=== PATIENT | male | born 1945 | race Caucasian/White ===

== ENCOUNTER 2016-04-09 10:43 | Inpatient (IN) | payer OTHER ==
[2016-03-23 13:44] VITALS: BMI 45.0
--- NOTE | 2016-03-23 14:29 | PAT Medication Instructions ---
Service Date Mar 23, 2016. Current Home Medication List Amlodipine (Norvasc), 10 MG PO QAM Aspirin (Aspirin Ec), 81 MG PO QAM Lisinopril (Prinivil), 20 MG PO BID Misc Natural Products (Prostate Support), 1 TAB PO BID Misc Natural Products (Dandelion Root), 1 TAB PO QAM Multivitamin (Multivitamin), 2 TAB PO QAM [[place] Thyroid], 60 MG PO QAM [Burdock Root], 1 TAB PO QAM Medication Instructions For Your Scheduled Surgery - Hold the following medications 2 weeks prior to surgery: Misc Natural Products (Prostate Support), 1 TAB PO BID Misc Natural Products (Dandelion Root), 1 TAB PO QAM [Burdock Root], 1 TAB PO QAM - Hold the following medications 24 hours prior to surgery: Lisinopril (Prinivil), 20 MG PO BID - Hold the following medications the morning of surgery: Multivitamin (Multivitamin), 2 TAB PO QAM - Take the following medications the morning of surgery with a sip of water OTHERWISE NOTHING TO EAT OR DRINK AFTER MIDNIGHT: [[place] Thyroid], 60 MG PO QAM Amlodipine (Norvasc), 10 MG PO QAM Aspirin (Aspirin Ec), 81 MG PO QAM If you have any questions please call us at [phone] (Charlotte Irene PA-C ) or [phone] or [phone]
[2016-03-23 14:48] LABS: BASO % 0.3 %; BASO ABS # 0.04 K/uL (0-0.2); COMPLETE YES; HEMATOCRIT 45.4 % (42-52); IG% 0.2 %; LYMPH % 16.4 %; MEAN CELL VOLUME 89.7 fL (80-100); MEAN CORPUSCULAR HEMOGLOBIN 29.6 pg (25-34); MONO % 7.9 %; NEUT % 72.2 %; PLATELET COUNT 285 K/uL (130-400); RED BLOOD COUNT 5.06 M/uL (4.7-6.1); WHITE BLOOD COUNT 12.84 K/uL (4.8-10.8)
[2016-03-23 14:58] LABS: PROTHROMBIN TIME (PATIENT) 10.3 SECONDS (9.0-12.0)
[2016-03-23 15:26] LABS: BUN/CREATININE RATIO 19.3 (10-20); CALCIUM 8.2 mg/dl (8.5-10.1); CREATININE 1.2 mg/dl (0.60-1.40)
--- NOTE | 2016-04-04 11:48 | HISTORY & PHYSICAL EXAMINATION ---
DATE OF ADMISSION: 05/19/2016 CHIEF COMPLAINT: Right knee pain. HISTORY OF PRESENT ILLNESS: A 70-year-old gentleman presents for treatment of his right knee. He has got a long history of right knee problems. He had right knee scoped by Dr. Jernigan about 20 years ago. Over the past several years, he has developed increased pain and discomfort in his right knee. He had multiple steroid shots which have become less successful with time. He has resorted to using a cane to manage his pain. Pain is mostly medial. It increases with weightbearing. He would like to proceed with surgical treatment. PAST MEDICAL HISTORY: 1. Hypertension. 2. Obesity with BMI of 45. 3. Hypothyroidism. 4. Benign prostatic hypertrophy. PAST SURGICAL HISTORY: Include right knee arthroscopy 20 years ago. ALLERGIES: None. CURRENT MEDICINES: Include 1. Posen once a day for his thyroid replacement. 2. Lisinopril once a day. 3. Amlodipine. SOCIAL HISTORY: A 70-year-old gentleman. He is . He is from [place]. 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 FAMILY HISTORY: Significant for heart disease and diabetes. REVIEW OF SYSTEMS: Negative for diabetes, neurologic problems, vascular problems or bleeding disorders. Denies any chest pain, shortness of breath. No history of DVT or PE. PHYSICAL EXAMINATION: GENERAL: Reveals a fairly large, obese, middle-aged male. HEENT: Benign. NECK: Supple. No lymphadenopathy. LUNGS: Clear to auscultation. HEART: Regular rate and rhythm. ABDOMEN: Soft, nontender, nondistended. EXTREMITIES: Grossly neurovascularly intact except as follows: Examination of the right knee and leg reveals the patient walks with an antalgic gait. He is using a cane at his clinic visit. He has got varus alignment to his knee. Small amount of varus thrust with weightbearing. He is tender over the medial joint line. Range of motion 0-125. No instability. No pain with hip motion. X-RAYS: X-rays of the right knee reviewed. It shows advanced medial compartment DJD. He has got complete loss of his medial joint space. He does have a little bit of tibial femoral subluxation as well as subchondral sclerosis. ASSESSMENT: A 70-year-old gentleman with a history of knee arthroscopy in the past with advanced right knee medial compartment degenerative joint disease. He has failed conservative treatment and would like to have his knee replaced. PLAN: We are going to take him to the operating room and do a right total knee replacement. The risks and benefits of this procedure were explained to the patient including but not limited to DVT, PE, , infection, neurological injury, vascular injury, bleeding problem, pain, limited range of motion, stiffness, failure to relieve symptoms, incomplete relief of symptoms, need for further surgery in the future, fracture, leg length inequality, nerve palsy, persistent pain, etc. The patient understands and desires to proceed. Informed consent was obtained. We did talk to him about holding his lisinopril the morning of surgery. He is planning to be discharged to home with the [facility] home health program. He was seen by his hoop punch operator helper, Dr. Sagastume on April 03 and cleared for surgery. MEREDITH
[2016-04-08 23:30] VITALS: BP 131/81; PULSE 60; TEMP 36.8; O2SAT 94
[2016-04-09] VITALS (10 sets, daily range): BP systolic 131–171; BP diastolic 77–93; PULSE 60–74; TEMP 36.4–36.8; O2SAT 94–100; Ht 175.3 cm; Wt 139.3 kg
[~2016-04-09] VITALS: Ht 175.3 cm; Wt 139.3 kg
[~2016-04-09 10:43] MED LIST: ACETAMINOPHEN 500 MG TAB PO SCH; AMLO-114 PO; ARMOUR THYROID PO; ASPI81TA28 PO; ATROPINE SULFATE 0.1 MG/ML 5ML SYR IV PRN; BUPIVACAINE 0.25% 30 ML VIAL ONE; BUPIVACAINE 0.5 % 5 MG/1 ML PF 10ML VIAL ONE; BUPIVACAINE LIPOSOME 1/3% 266 MG/20 ML VIAL INFIL ONE; BUPIVACAINE LIPOSOME 266 MG, BUPIVACAINE/EPINEPHRINE INJ 50 ML, SODIUM CHLORIDE 0.9% PF... INFIL SCH; BURDOCK ROOT PO; CEFAZOLIN 3000 MG/65 ML D5W 65 ML IV SCH; EpHEDrine SULFATE INJ 50 MG/ML AMP IV PRN; FAMOTIDINE 20 MG TAB PO SCH; FENTANYL CITRATE INJ 50 MCG/1 ML 2 ML VIAL IV PRN; GABAPENTIN 300 MG CAP PO SCH; LACTATED RINGER'S 1000ML IV SCH; LACTATED RINGER'S 500 ML IV SCH; LISI20TA3 PO; METOCLOPRAMIDE HCL 10 MG TAB PO SCH; MISCCAP55 PO; MISCTAB27 PO; MULT-506 PO; ONDANSETRON INJ 2 MG/ML 2 ML VIAL IV PRN; SCOPOLAMINE 1.5 MG TDSY TD SCH; TRANEXAMIC ACID INJ 1,000 MG in SODIUM CHLORIDE 0.9% 100ML 100 ML IV SCH
--- NOTE | 2016-04-09 11:20 | History & Physical Bridge Note ---
H&P Re-Evaluation Bridge Note: I have examined the patient, reviewed the History & Physical and in the interval since the performance of the History & Physical I have noted the following changes of clinical significance: No changes noted
[2016-04-09] MEDS ORDERED: MIDAZOLAM HCL 1 MG/ML 2ML VIAL ONE ×2 (11:57→13:01)
[2016-04-09] MEDS ORDERED: BUPIVACAINE LIPOSOME 1/3% 266 MG/20 ML VIAL INFIL ONE (12:03)
[2016-04-09] MEDS ORDERED: PROPOFOL IV EMULSION 10 MG/ML 20 ML VIAL IV ONE (14:04)
[2016-04-09] MEDS ORDERED: FENTANYL CITRATE INJ 50 MCG/1 ML 2 ML VIAL ONE (14:05)
[2016-04-09] MEDS ORDERED: MIX: SENSORCAINE W/EPI+NSS+EXPAREL INJ ONE (14:19)
[2016-04-09] MEDS ORDERED: BACITRACIN 50000 UNIT VIAL IR ONE (14:19)
--- NOTE | 2016-04-09 14:37 | [facility] Post Operative Brief Note ---
Immediate Operative Summary Operative Date Apr 09, 2016. Pre-Operative Diagnosis Right knee degenerative joint disease Post-Operative Diagnosis Right knee degenerative joint disease Procedure(s) Performed Right Total Knee Arthroplasty Surgeon Dr. Darrion Richter Accounting File Clerk Surgeon(s) Stepan Garcia PA-C Estimated Blood Loss 50mL Findings Right Knee DJD Fluids (cc crystalloids) 1200 cc Specimens Specimen A. Right knee bone and tissue Drains None Anesthesia Spinal Complication(s) None Disposition Recovery Room / PACU
[2016-04-09] MEDS ORDERED: BISACODYL 10 MG SUPP PR PRN (14:45)
[2016-04-09] MEDS ORDERED: MoRPHine SULFATE 2 MG/ML CARP IV PRN (14:45)
[2016-04-09] MEDS ORDERED: ZOLPIDEM TARTRATE 5 MG TAB PO PRN (14:45)
[2016-04-09] MEDS ORDERED: MAGNESIUM HYDROXIDE SUSP 30 ML UDC PO PRN (14:45)
[2016-04-09] MEDS ORDERED: ONDANSETRON INJ 2 MG/ML 2 ML VIAL IV PRN (14:45)
[2016-04-09] MEDS ORDERED: TAMSULOSIN HCL 0.4 MG CAP PO PRN (14:45)
[2016-04-09] MEDS ORDERED: METOCLOPRAMIDE HCL INJ 5 MG/ML 2 ML VIAL IV PRN (14:45)
[2016-04-09] MEDS ORDERED: SILVER SULFADIAZINE 1% CR 50 GM JAR EXT PRN (14:45)
[2016-04-09] MEDS ORDERED: ALUMINUM/MAGNESIUM/SIMETH (MAALOX MAX) 30 ML UDC PO PRN (14:45)
[2016-04-09] MEDS ORDERED: DiphenhydrAMINE HCL 50 MG/ML VIAL IV PRN (14:45)
--- NOTE | 2016-04-09 15:06 | DIAGNOSTIC IMAGING REPORT ---
TWO VIEWS RIGHT KNEE CLINICAL HISTORY: Postoperative examination. FINDINGS: AP and crosstable lateral portable views of the right knee are obtained. A right knee arthroplasty is in near anatomic alignment. There has been undersurface remodeling of the patella. No acute fracture is seen. There are expected postoperative changes around the knee including skin clips, soft tissue edema, and subcutaneous gas. IMPRESSION: Expected postoperative changes status post right knee arthroplasty. No acute fracture is seen. Electronically signed by: Cam Dietrich M.D. 04/09/2016 3:04 PM Dictated Date/Time: 04/09/2016 3:04 PM
--- NOTE | 2016-04-09 15:06 | OPERATIVE REPORT ---
DATE OF OPERATION: 04/09/2016 SURGEON: Darrion Richter MD DOCUMENTATION CONSULTANT: JASMIN Waldron PREOPERATIVE DIAGNOSIS: Right knee degenerative joint disease. POSTOPERATIVE DIAGNOSIS: Same. PROCEDURE PERFORMED: Right cemented posterior stabilized total knee arthroplasty. COMPLICATIONS: None. ESTIMATED BLOOD LOSS: 50 mL. FLUID REPLACEMENT: 1200 mL crystalloid fluid replacement. ANESTHESIA: Spinal. DRAINS: None. SPECIMENS: Right knee sent for pathology. TOURNIQUET TIME: 55 minutes at 300 mmHg. OPERATIVE INDICATIONS: The patient is a 70-year-old gentleman from [place], who has had a long history of bilateral knee pain and discomfort. He does have a history of right knee arthroscopy done in [place] 20 years ago. He has developed increased pain and discomfort over the years. He has failed conservative care. X-rays revealed advanced medial compartment DJD and the patient elected to proceed with operative treatment. OPERATIVE FINDINGS: Operative findings revealed advanced right knee DJD involving the medial compartment primarily. He had fairly extensive grade 4 changes of the medial femoral condyle. He had more focal changes of the medial tibial plateau. He had chronic fixed varus deformity. Fairly large knee joint effusion. Fairly mild aragon of the patellofemoral joint. Minimal wear of the lateral compartment. OPERATIVE IMPLANTS: Operative implants consisted of: 1. A Biomet Vanguard size 75 right posterior stabilized femoral component. 2. Biomet size 75 tibial tray. 3. A 10-mm posterior stabilized polyethylene insert. 4. A 34 x 8.5 all poly patella. OPERATIVE PROCEDURE: The patient was taken to the operating room, identified and placed on the operating table in the supine position. All contact areas were appropriately padded. IV antibiotics were provided by anesthesia team. A spinal anesthetic had been implemented in the holding area. Woods catheter was placed in sterile fashion. Right thigh tourniquet was then placed and the right lower extremity was then prepped and draped in the usual sterile fashion. The right leg was elevated and exsanguinated with the use of an Esmarch and tourniquet was placed at 300 mmHg. An anterior approach to the right knee was then performed through a longitudinal incision centered over the patella. Dissection was carried out through the subcutaneous tissues down to the level of the extensor mechanism. A medial parapatellar arthrotomy incision was made. Some subperiosteal dissection was carried out medially. The fat pad was resected from beneath the patellar tendon. The lateral patellofemoral ligament was released. The patella was everted and the knee was flexed. The osteophytes were taken off the distal femur. The ACL and PCL were then released from the distal femur and the tibia subluxated anteriorly. The external tibial alignment jig was then placed in the anterior face of the tibia and adjusted 16 mm medially. Proximal tibial cut was made to remove about 2 mm of bone from the most deficient aspect of the medial tibial plateau. The tibia was sized to a size 75. Some osteophytes were taken off medial and posteromedially. Attention was then drawn to the femur. The distal femur was entered with a sharp drill. Intramedullary canal was suctioned. A right 6-degree valgus cutting guide was placed. Distal femoral cutting block was pinned in place. Distal femoral cut was made to take an additional 3 mm of bone off the distal femur. The femur was then sized to a size slightly bigger than 75. We did downsize this slightly. The AP cutting block was pinned parallel to the epicondylar axis, which was 4 degrees of external rotation. The anterior cut, anterior chamfer, posterior cut, and posterior chamfer cuts were made. Box cutting guide was placed and adjusted slightly lateral and the box cut was made. The knee was flexed. The remnants of the medial and lateral menisci were excised. The osteophytes were taken off the posterior aspect of the femur. A trial femoral component was placed. Tibial tray was pinned in maximum external rotation and drill and stem punch were used to create defect in proximal tibia for the tibial tray. The knee was then trialed and the 10-mm insert fit most appropriately. Attention was then drawn toward the patella. The patella was cleaned of all soft tissues. Patella thickness measured 25 mm in thickness and it was cut down to 14. It was sized to a size 34 patella. Lug holes were drilled for a 34 patella. Lateral osteophyte was removed. Patella button was placed. Knee was taken through range of motion and the patella tracked nicely with no thumbs test. Attention was then drawn toward placement of the permanent components. All trial components were removed. Bone plug was placed in the distal femur to limit blood loss. A double batch of Palacos G cement was mixed. A right size 75 posterior stabilized femoral component, size 75 tibial tray, a 10-mm posterior stabilized polyethylene insert, and a 34 x 8.5 all poly patella were then cemented in place. Knee was brought out into full extension until cement hardened. A final cement check was then performed. Pericapsular tissues were injected with a total of 100 mL of a combination of 20 mL of Exparel, 30 mL of normal saline, and 50 mL of 0.25% Marcaine with epinephrine. The patient did receive 1 gram of tranexamic acid. The tourniquet was let down for a tourniquet time of 55 minutes. Hemostasis was assured with use of electrocautery. The extensor mechanism was then closed with a combination of #1 PDS suture and #1 Vicryl suture in a buried interrupted fashion. The skin was closed with skin ray. Leg was then cleaned and dried and a sterile dressing with Xeroform, 4 x 4, sterile cast padding and Sami bandage were applied. The patient then transferred to the recovery room in stable condition. The patient tolerated the procedure well with no complications. All needle and sponge counts were correct at the end of the operation. I attest to the content of the Intraoperative Record and any orders documented therein. Any exceptio ns are noted below.
--- NOTE | 2016-04-09 15:08 | Anesthesiology Progress Note ---
Anesthesia Post Op Note Date & Time Apr 09, 2016 at 15:08 Vital Signs Pain Intensity: 0 Vital Signs Past 12 Hours Date Time Temp Pulse Resp B/P Pulse Ox O2 Delivery O2 Flow Rate FiO2 04/09/16 15:05 36.5 63 16 149/79 98 Nasal Cannula 2 04/09/16 14:55 66 16 145/82 98 Nasal Cannula 2 04/09/16 14:45 73 16 134/77 98 Nasal Cannula 2 04/09/16 14:44 36.4 71 18 128/77 96 Nasal Cannula 2 04/09/16 11:28 36.5 74 18 169/91 100 Room Air Notes Mental Status: alert / awake / arousable, participated in evaluation Pt Amnestic to Procedure: Yes Nausea / Vomiting: adequately controlled Pain: adequately controlled Airway Patency, RR, SpO2: stable & adequate BP & HR: stable & adequate Hydration State: stable & adequate Neuraxial Anesthesia: was administered, sensory block is resolving Anesthetic Complications: no major complications apparent
[2016-04-09] MEDS: D5W AND 1/2NSS + 20MEQ KCL 1,000 ML IV SCH ×2 (16:25→23:45)
[2016-04-09] MEDS: CHECK SCOPOLAMINE PATCH PLACEMENT SCH ×2 (16:26→23:45)
[2016-04-09] MEDS: KETOROLAC TROMETHAMINE 15 MG/ML VIAL IV. SCH ×2 (16:27→21:33)
[2016-04-09] MEDS: FERROUS GLUCONATE 324 MG TAB PO SCH (17:04)
[2016-04-09] MEDS: CEFAZOLIN IV 2,000 MG in DEXTROSE 5% 50ML 50 ML IV SCH (20:12)
[2016-04-09] MEDS: ACETAMINOPHEN 500 MG TAB PO SCH (20:13)
[2016-04-09] MEDS ORDERED: NATURAL PRODUCTS PO SCH (21:00)
[2016-04-09] MEDS: DOCUSATE SODIUM 100 MG CAP PO SCH (21:17)
[2016-04-09] MEDS: ASPIRIN 325 MG ECTAB PO SCH (21:18)
[2016-04-09] MEDS: TAPENTADOL ER 50 MG TABCR PO SCH (21:18)
[2016-04-09] MEDS: LISINOPRIL 20 MG TAB PO SCH (21:19)
[2016-04-09] MEDS ORDERED: TRANEXAMIC ACID INJ 1,000 MG in SODIUM CHLORIDE 0.9% 100ML 100 ML IV ONE (22:00)
[2016-04-10 03:43] VITALS: BP 137/86; PULSE 62; TEMP 36.5; O2SAT 95
[2016-04-10] MEDS: ACETAMINOPHEN 500 MG TAB PO SCH ×3 (03:58→20:42)
[2016-04-10] MEDS: KETOROLAC TROMETHAMINE 15 MG/ML VIAL IV. SCH ×4 (03:59→21:41)
[2016-04-10] MEDS: CEFAZOLIN IV 2,000 MG in DEXTROSE 5% 50ML 50 ML IV SCH (03:59)
[2016-04-10] MEDS: D5W AND 1/2NSS + 20MEQ KCL 1,000 ML IV SCH ×2 (05:54→13:05)
[2016-04-10 06:16] LABS: HEMATOCRIT 41.1 % (42-52); MEAN CELL VOLUME 90.7 fL (80-100); MEAN CORPUSCULAR HEMOGLOBIN 29.4 pg (25-34); MEAN CORPUSCULAR HGB CONC 32.4 g/dl (32-36); MEAN PLATELET VOLUME 11.6 fL (7.4-10.4); PLATELET COUNT 239 K/uL (130-400); RED BLOOD COUNT 4.53 M/uL (4.7-6.1); WHITE BLOOD COUNT 13.35 K/uL (4.8-10.8)
[2016-04-10 06:32] LABS: BUN/CREATININE RATIO 16.2 (10-20); CALCIUM 7.8 mg/dl (8.5-10.1); CREATININE 1.2 mg/dl (0.60-1.40); POTASSIUM 4.1 mmol/L (3.5-5.1)
[2016-04-10 07:00] VITALS: BP 137/79; PULSE 63; TEMP 36.6; O2SAT 96
[2016-04-10] MEDS: OXYCODONE HCL IR 5 MG TAB (IMMEDIATE RELEASE) PO PRN ×2 (07:22→13:08)
--- NOTE | 2016-04-10 07:27 | Anesthesiology Progress Note ---
Anesthesia Post Op Note Date & Time Apr 10, 2016 at 07:27 Vital Signs Pain Intensity: 0.0 Vital Signs Past 12 Hours Date Time Temp Pulse Resp B/P Pulse Ox O2 Delivery O2 Flow Rate FiO2 04/10/16 03:43 36.5 62 18 137/86 95 Room Air 04/09/16 23:50 Room Air 04/09/16 23:30 36.8 60 18 131/81 94 Room Air 04/09/16 20:14 14 96 Room Air Notes Mental Status: alert / awake / arousable, participated in evaluation Pt Amnestic to Procedure: Yes Nausea / Vomiting: adequately controlled Pain: adequately controlled Airway Patency, RR, SpO2: stable & adequate BP & HR: stable & adequate Hydration State: stable & adequate Neuraxial Anesthesia: was administered, sensory block resolved Anesthetic Complications: no major complications apparent
[2016-04-10] MEDS: CHECK SCOPOLAMINE PATCH PLACEMENT SCH ×2 (08:13→16:03)
[2016-04-10] MEDS: PANTOprazole SOD 40 MG TAB PO SCH (08:38)
[2016-04-10] MEDS: LISINOPRIL 20 MG TAB PO SCH ×2 (08:38→20:43)
[2016-04-10] MEDS: MULTIVITAMIN TAB PO SCH (08:38)
[2016-04-10] MEDS: AMLODIPINE BESYLATE 5 MG TAB PO SCH (08:38)
[2016-04-10] MEDS: TAPENTADOL ER 50 MG TABCR PO SCH ×2 (08:38→20:42)
[2016-04-10] MEDS: ASPIRIN 325 MG ECTAB PO SCH ×2 (08:39→20:42)
[2016-04-10] MEDS: DOCUSATE SODIUM 100 MG CAP PO SCH ×2 (08:39→20:42)
[2016-04-10] MEDS: ARMOUR THYROID 30 MG TAB PO SCH (08:39)
[2016-04-10] MEDS: FERROUS GLUCONATE 324 MG TAB PO SCH ×3 (08:39→17:38)
[2016-04-10] MEDS ORDERED: MULTIVITAMIN TAB PO SCH (09:00)
[2016-04-10] MEDS ORDERED: BURDOCK ROOT PO SCH (09:00)
[2016-04-10] MEDS ORDERED: NATURAL PRODUCTS PO SCH (09:00)
[2016-04-10 09:20] VITALS: BP 139/69; PULSE 76; O2SAT 97
--- NOTE | 2016-04-10 15:51 | PROGRESS NOTE ---
DATE: 04/10/2016 SUBJECTIVE: A 70-year-old gentleman postop day #1 from a right knee replacement. He is doing pretty well. Pain is well controlled. Denies any chest pain or shortness of breath. Not feeling dizzy or lightheaded. OBJECTIVE: VITAL SIGNS: Temperature 36.6. Vital signs stable. GENERAL: Physical examination reveals a pleasant, middle-aged male. He is sitting up in bed and looks pretty comfortable. LUNGS: Clear to auscultation. HEART: Regular rate and rhythm. ABDOMEN: Soft, nontender, and nondistended. EXTREMITIES: Grossly neurovascularly intact except as follows. Examination of the right lower extremity reveals the leg to be well aligned. Dressing is clean, dry, and intact. He can dorsiflex and plantarflex his foot appropriately. He is neurologically intact. LABORATORY DATA: Hemoglobin 13.3, hematocrit 41.1, and white cell count is 13.35. Electrolytes are stable. ASSESSMENT: A 70-year-old gentleman postop day #1 from right knee replacement, doing pretty well. Pain is controlled. He is neurologically intact. PLAN: 1. DVT prophylaxis including thigh-high TEDs, SCDs, and aspirin twice a day. 2. PT/OT. Weightbear as tolerated. Right total knee program. 3. Pain medicines, doing well with current pain protocol. 4. Disposition: Plan to discharge to home with some home health once adequately recovered.
[2016-04-10 16:14] VITALS: BP 154/76; PULSE 71; TEMP 36.4; O2SAT 96
[2016-04-10] MEDS ORDERED: OXYC-57 PO (19:44)
[2016-04-10] MEDS ORDERED: MORP15TA19 PO (19:44)
[2016-04-10] MEDS ORDERED: ASPEC325 PO (19:44)
--- NOTE | 2016-04-10 19:47 | Discharge Instructions ---
Discharge Instructions Admission Reason for Admission: Right Knee Pain/ Osteoarthritis Discharge Discharge Diagnosis / Problem: Right Knee Replacement Discharge Goals Goal(s): Decrease discomfort, Improve function, Increase independence, Improve disease control, Therapeutic intervention Activity Recommendations Activity Limitations: per Instructions/Follow-up section Weightbearing Status: Right weightbearing . Instructions / Follow-Up Instructions / Follow-Up ACTIVITY RECOMMENDATIONS: Physical Therapy: * You will go to physical therapy three times each week for four to six weeks after your surgery in order to regain your knee range of motion and to retrain your knee to work properly. * It is just as important to make sure you are getting your knee perfectly straight as it is to regain your knee bend. * Taking a pain pill an hour before therapy can help you have a more productive and comfortable therapy session. Home Exercise: * You were shown a series of exercises (heel props, heel slides, etc.) in the hospital. Do these exercises three to four times each day including the exercises you were shown in physical therapy. Walking: * Get up and walk several times each day. For the first four weeks, try not to stand or walk for more than one hour at a time. If you do stand or walk for more than one hour, you will not hurt anything, but your knee and leg will likely swell. * As you feel comfortable, you may change from the walker or crutches to a cane and then to independent walking. MEDICATIONS: New Medicine: * You will likely be taking one or more of these medications: 1. MS Contin - A long-acting pain medication. Take 1 tablet twice a day for the first ten days to decrease your baseline level of pain. 2. Percocet - A quick and shorter-acting pain medication. Take one to two tablets every four to six hours to lessen your pain. 3. Aspirin - Thins your blood to lessen the chance of forming a blood clot. * The most common side effects of pain medicine and iron are nausea and constipation. If nausea or constipation is too much of a problem or if you have any questions about your new medicines or doses, call [facility] at [phone]. We will try to help you manage these issues. VERY IMPORTANT TO READ AND REVIEW" Pain: * The immediate post-operative period after knee replacement surgery is often quite painful. * You are given a prescription for pain medicine. You should take it, as directed, when you need it, especially before physical therapy and before going to bed. Pain that interferes with sleep is very common and can last several months. * You will likely need pain medicine for the first four to six weeks. It will not stop all of the pain. The pain will lessen and as you feel better, you may change to milder pain medicine such as Tylenol. * The most common side effects of pain medicine are nausea and constipation, so don't take more than you need. SPECIAL CARE INSTRUCTIONS: TEDs/Elastic Stockings: * The white elastic stockings help limit swelling and prevent blood clots from forming in your legs. The more you wear them, the more they work. * Wear them for six weeks after knee replacement surgery and four weeks after partial knee replacement. Prevention of Infection: * Take antibiotics one hour before any dental cleaning, dental work, urological procedure, gastrointestinal procedure or any invasive surgery in order to prevent your new joint from getting infected. * You may get the antibiotics from the doctor performing the procedure or you may call our office at before and we will call in a prescription to the pharmacy of your choice. Things to Watch For: * Drainage from the incision site that occurs more than one week after your surgery. * Severely increased knee/leg pain or swelling. * Increased redness at the incision site. * Fever above 102 degrees Fahrenheit. * Unusual chest pain or shortness of breath. * Unusual pain or burning with urination. Call [facility] at with any of the above problems or if you have any questions about your medicines or recovery. FOLLOW UP VISIT: Make an appointment to see your doctor for approximately two weeks after surgery for a progress check and staple removal by calling the office at . Current Hospital Diet Patient's current hospital diet: Regular Diet Discharge Diet Recommended Diet: Regular Diet Procedures Procedures Performed: Right Total Knee Arthroplasty Pending Studies Studies pending at discharge: no Medical Emergencies . Who to Call and When: Medical Emergencies: If at any time you feel your situation is an emergency, please call [phone] immediately. . Non-Emergent Contact Non-Emergency issues call your: Surgeon . "Provider Documentation" section prepared by Darrion Richter. VTE Core Measure Inpt VTE Proph given/why not?: Other Anticoagulation, T.E.D. Stockings, SCD's
[2016-04-10 22:50] VITALS: BP 152/77; PULSE 76; TEMP 36.9; O2SAT 95
[2016-04-11] MEDS: CHECK SCOPOLAMINE PATCH PLACEMENT SCH ×2 (00:32→08:11)
[2016-04-11] MEDS: KETOROLAC TROMETHAMINE 15 MG/ML VIAL IV. SCH ×2 (03:34→10:40)
[2016-04-11] MEDS: ACETAMINOPHEN 500 MG TAB PO SCH ×2 (03:35→12:27)
[2016-04-11 07:03] VITALS: BP 152/79; PULSE 73; TEMP 36.7; O2SAT 97
[2016-04-11 08:11] VITALS: BP 152/79; PULSE 73; TEMP 36.7; O2SAT 97
[2016-04-11] MEDS: DOCUSATE SODIUM 100 MG CAP PO SCH (09:00)
[2016-04-11] MEDS: ARMOUR THYROID 30 MG TAB PO SCH (09:08)
[2016-04-11] MEDS: PANTOprazole SOD 40 MG TAB PO SCH (09:08)
[2016-04-11] MEDS: AMLODIPINE BESYLATE 5 MG TAB PO SCH (09:08)
[2016-04-11] MEDS: MULTIVITAMIN TAB PO SCH (09:08)
[2016-04-11] MEDS: FERROUS GLUCONATE 324 MG TAB PO SCH ×2 (09:08→12:28)
[2016-04-11] MEDS: TAPENTADOL ER 50 MG TABCR PO SCH (09:14)
[2016-04-11] MEDS: OXYCODONE HCL IR 5 MG TAB (IMMEDIATE RELEASE) PO PRN (09:15)
[2016-04-11] MEDS: LISINOPRIL 20 MG TAB PO SCH (09:48)
[2016-04-11] MEDS: ASPIRIN 325 MG ECTAB PO SCH (09:48)
--- NOTE | 2016-04-11 10:10 | PROGRESS NOTE ---
DATE: 04/11/2016 SUBJECTIVE: A 70-year-old gentleman postop day #2 from a right knee replacement. He is doing pretty well. Pain is controlled. No chest pain or shortness of breath. Not feeling dizzy or lightheaded. OBJECTIVE: VITAL SIGNS: Temperature 36.7. Vital signs stable. Mild hypertension. PHYSICAL EXAMINATION: GENERAL: Reveals a pleasant, middle-aged male. He is sitting up in bed and looks pretty comfortable. LUNGS: Clear to auscultation. HEART: Has a regular rate and rhythm. ABDOMEN: Soft, nontender, nondistended. EXTREMITIES: Grossly neurovascularly intact except as follows. Examination of the right lower extremity reveals the leg to be well aligned. Dressing is clean, dry and intact. No significant drainage. He is neurologically intact. ASSESSMENT: A 70-year-old gentleman, postoperative day #2 from right knee replacement, doing pretty well. Pain is controlled. He has very mild hypertension which he can manage as an outpatient as needed. This certainly could be related to pain. PLAN: 1. DVT prophylaxis include thigh-high TEDs, SCDs, and aspirin twice a day. 2. PT/OT. Weightbearing as tolerated. Right total knee protocol. 3. Pain control, doing pretty well with current pain regimen. 4. Disposition: Plan to discharge to home with home health once adequately recovered.
--- NOTE | 2016-04-20 14:03 | DISCHARGE SUMMARY ---
ADMITTING PHYSICIAN AND SURGEON: Dr. Richter. ADMITTING DIAGNOSIS: Right knee degenerative joint disease. SURGERY PERFORMED: Right total knee arthroplasty. SECONDARY DIAGNOSES: Hypertension, obesity, hypothyroidism, benign prostatic hypertrophy. CONSULTS: None obtained. HISTORY AND PHYSICAL EXAMINATION: Well documented in patient's chart. HOSPITAL COURSE: The patient was admitted on 04/09/2016, underwent total knee arthroplasty. He tolerated the procedure well. There were no complications. He was transferred to the PACU postoperatively and later to the orthopedic floor for further care. He was given Ancef for antibiotic prophylaxis. DG stockings, SCDs and aspirin for DVT prophylaxis. Hemoglobin, hematocrit and vital signs monitored during his hospital stay remained stable. He did not require any blood transfusions. There were no complications. By postoperative day 2, he was tolerating a general diet. Pain was controlled with oral pain medicine. He was participating in physical therapy. He had no signs or symptoms of deep vein thrombosis. On postoperative day 2, he was discharged home in good condition. Set up in the home health services. He was given printed discharge instructions including prescriptions for aspirin 325 mg b.i.d., MS Contin and Percocet. Continue home medications with the exception of his home dose of aspirin, which is changed. Continue physical therapy, weightbearing as tolerated. DG stockings. Follow up in 10-12 days or sooner if there are problems or concerns.
== END 2016-04-11 12:55 | disposition home health service (06) | DRG 470 ==
LOC: ENRESERVTM → ENRESERVDT → C.ACU 10:43 → C.3E 11:15
PROVIDERS: ADMIT Orthopaedic Surgery Sports Medicine; ATTEND Orthopaedic Surgery Sports Medicine
PROC: 0SRC0J9 Replacement of Right Knee Joint with Synthetic Substitute, Cemented, Open Approach (ICD-10-PCS; principal; 2016-04-09 12:45)
DX: M17.11 Unilateral primary osteoarthritis, right knee (principal); Z68.42 Body mass index [BMI] 45.0-49.9, adult; I10 Essential (primary) hypertension; E66.9 Obesity, unspecified; E03.9 Hypothyroidism, unspecified; N40.0 Benign prostatic hyperplasia without lower urinary tract symptoms; Z79.899 Other long term (current) drug therapy

== ENCOUNTER 2019-06-09 06:07 | Observation (INO) ==
--- NOTE | 2019-05-17 15:46 | PAT Medication Instructions ---
Medication Instructions Date of Service May 17, 2019 Home Medications aspirin 81 mg tablet,delayed release 81 mg PO DAILY Super Beta Prostate 2 tab PO DAILY acetaminophen [Tylenol Arthritis Pain] 650 mg PO UD PRN amlodipine 10 mg PO QAM ibuprofen 400 mg PO BID lisinopril 20 mg PO BID thyroid (pork) [[place] Thyroid] 60 mg PO QAM ASK your surgeon for instructions ibuprofen 400 mg PO BID STOP taking 2 weeks before surgery (or as soon as possible if surgery is within 2 weeks) Super Beta Prostate 2 tab PO DAILY DO NOT take the morning of surgery lisinopril 20 mg PO BID Take morning of surgery With a small sip of water, OTHERWISE NOTHING TO EAT OR DRINK AFTER MIDNIGHT: aspirin 81 mg tablet,delayed release 81 mg PO DAILY acetaminophen [Tylenol Arthritis Pain] 650 mg PO UD PRN (okay to take up to 4 hours prior to surgery if needed) amlodipine 10 mg PO QAM thyroid (pork) [[place] Thyroid] 60 mg PO QAM Take evening before surgery acetaminophen [Tylenol Arthritis Pain] 650 mg PO UD PRN (if needed) lisinopril 20 mg PO BID Other Notes If you have any questions please call us at [phone] or [phone] or [phone] or [phone]
--- NOTE | 2019-05-19 10:27 | Anesthesiology Consultation ---
Date of Service May 19, 2019 Assessment & Plan (1) Encounter for pre-operative examination: Chart Review Chart Review: Acceptable Risk for Surgery (pending K recheck AM of surgery ) and Patient seen in Pre Admission Testing Mild hyperkalemia on pre op labs- will check K stat AM of surgery. Also sent FYI to PCP since patient on ACEi. Right TKA - 04/09/16= SAB- L3-4 with 1 attempt. No significant issues per anesthesia record Teaching & Discussion Pre-Anesthesia Teaching/Discussion Notes: Instructed NPO after midnight before surgery,except medications with 15 cc of water. Medication instructions provided according to the PAT guidelines. History Surgery Operation Date: 06/09/19 08:50 Proposed Procedures p Left Total Hip Arthroplasty - Darrion Richter MD Height/Weight Height: 5 ft 9 in Weight: 126.7 kg Allergies Allergy/AdvReac Type Severity Reaction Status Date / Time adhesive Allergy Intermediate Rash Verified 05/19/19 10:30 Medications Home Medications Medication Instructions Recorded Confirmed Last Taken aspirin 81 mg tablet,delayed 81 mg PO DAILY 02/24/19 05/19/19 Unknown release Super Beta Prostate 2 tab PO DAILY 05/15/19 05/19/19 Unknown acetaminophen [Tylenol Arthritis 650 mg PO UD PRN 05/15/19 05/19/19 Unknown Pain] amlodipine 10 mg PO QAM 05/15/19 05/19/19 Unknown ibuprofen 400 mg PO BID 05/15/19 05/19/19 Unknown lisinopril 20 mg PO BID 05/15/19 05/19/19 Unknown thyroid (pork) [[place] Thyroid] 60 mg PO QAM 05/15/19 05/19/19 Unknown Past Medical History Medical History History of back problems Hypertension Hypertrophy of prostate Hypothyroid Osteoarthritis Exercise / Class Metabolic Activity II 4-5 Yardwork/Stairs/Walk up hill (no chest pain or SOB with one flight of stairs- uses cane for long distances due to hip pain ) Past Surgical History Surgical History H/O hernia repair History of colonoscopy History of total right knee replacement Past Anesthesia History No Hx of Anesthesia Complications (did have some recollections during right TKA ) and No Family Hx of Anesthesia Complications History of PONV No Hx of PONV and Hx of Motion Sickness (With amusement rides ) Social History Smoking Status: Never smoker Do You Dip or Chew Tobacco: No (HX OF 50 YRS AGO, NONE CURRENT) Hx Alcohol Use: No Hx Substance Use: No substance use type: does not use Review of Systems Patient denies chest pain, shortness of breath, dyspnea on exertion, reflux, cough, wheezing, palpitations. No hx of seizures, stroke, CO, apnea/snoring. No hx of blood clots or blood transfusions Physical Exam Vital Signs VITALS BP 163/83 P 64 TEMP 97.9 SP02 97% RESP 16 Constitutional no acute distress ENMT Mouth: no TMJ clicking, no chipped teeth and no loose teeth Thyromental Distance: > or= 3.5 Finger Breadths (3.5) Mallampati Class: I Partial lower denture Neck neck extension not limited Respiratory normal respiratory effort; no respiratory distress Auscultation: lungs clear to auscultation bilaterally and + diminished lung sounds (minimally throughout ); no wheezes Cardiovascular Rate/Rhythm: regular rate and regular rhythm Heart Sounds: + murmur (I/ systolic murmur ) Vessels: no carotid bruit Extremities: + edema (mild dependent edema ) Musculoskeletal Spine: no pain with cervical ROM Neurologic moves all extremities Psychiatric Orientation: alert Testing Laboratory Results 05/19/19 10:49 05/19/19 10:49 PT 10.3 Seconds (9.0-12.0) 05/19/19 10:49 INR 1.0 (0.9-1.1) 05/19/19 10:49 APTT 25.5 Seconds (21.0-31.0) 05/19/19 10:49 Blood Type AB Positive 05/19/19 10:49 Antibody Screen NEGATIVE 05/19/19 10:49 Electrocardiogram Date: 05/19/19 Findings: + NSR @ (64) Incomplete RBBB. Chest X-Ray Date: 05/19/19 Findings: + NAD Echocardiogram Date: 03/30/16 EF: 60% LV Function: normal Valvular Disease: + no significant valvular disease (although not well seen )
--- NOTE | 2019-05-19 11:16 | XRay Report ---
XR chest Pre-admission PA/Lat CLINICAL HISTORY: PAT preoperative evaluation COMPARISON STUDY: No previous studies for comparison. FINDINGS: The bones soft tissues and hemidiaphragms are normal. The cardiomediastinal silhouette is n ormal. The lungs are clear. The pulmonary vasculature is normal. IMPRESSION: Negative chest. ACT 112: Negative or not required by law. The above report was generated using voice recognition software. It may contain grammatical, syntax or spelling errors. Electronically signed by: Kings Chang M.D. 05/19/2019 11:15 AM
[2019-05-19 11:29] LABS: Basophils # (auto) 0.06 K/uL (0-0.2); Basophils % (auto) 0.6 %; Eosinophils # (auto) 0.48 K/uL (0-0.5); Eosinophils % (auto) 4.4 %; Hematocrit (blood only) 43.4 % (42-52); Hemoglobin 13.9 g/dL (14.0-18.0); Immature Granulocytes # (auto) 0.03 K/uL (0.00-0.02); Immature Granulocytes % (auto) 0.3 %; Lymphocytes # (auto) 1.99 K/uL (1.2-3.4); Lymphocytes % (auto) 18.4 %; Mean Corpuscular Hemoglobin 28.8 pg (25-34); Mean Platelet Volume 11.2 fL (7.4-10.4); Monocytes # (auto) 1.23 K/uL (0.11-0.59); Monocytes % (auto) 11.4 %; Neutrophils % (auto) 64.9 %; Platelet Count 308 K/uL (130-400); RDW Coefficient of Variation 15.1 % (11.5-14.5); RDW Standard Deviation 49.6 fL (36.4-46.3); Red Blood Count 4.82 M/uL (4.7-6.1); White Blood Count 10.79 K/uL (4.8-10.8)
[2019-05-19 11:38] LABS: C Reactive Protein 1.24 mg/dl (0-0.29); Calcium 8.7 mg/dl (8.5-10.1); Est GFR (African American) 67.3; Potassium 5.2 mmol/L (3.5-5.1)
[2019-05-19 11:55] LABS: Partial Thromboplastin Ratio 0.9; Partial Thromboplastin Time 25.5 Seconds (21.0-31.0); Prothrombin Time 10.3 Seconds (9.0-12.0)
--- NOTE | 2019-05-19 18:35 | Electrocardiogram Report ---
Test Reason : Blood Pressure : / mmHG Vent. Rate : 064 BPM Atrial Rate : 064 BPM P-R Int : 166 ms QRS Dur : 102 ms QT Int : 424 ms P-R-T Axes : 067 076 022 degrees QTc Int : 437 ms Normal sinus rhythm Incomplete right bundle branch block Borderline ECG No previous ECGs available Confirmed by Jason Gonzales ([id number]) on 05/19/2019 6:34:45 PM Referred By: Darrion Richter Confirmed By:David Gonzales
[~2019-06-09 06:07] MED LIST changes: -AMLO-114 PO; -ARMOUR THYROID PO; -ASPI81TA28 PO; -ATROPINE SULFATE 0.1 MG/ML 5ML SYR IV PRN; -BUPIVACAINE 0.25% 30 ML VIAL ONE; -BUPIVACAINE 0.5 % 5 MG/1 ML PF 10ML VIAL ONE; -BUPIVACAINE LIPOSOME 1/3% 266 MG/20 ML VIAL INFIL ONE; -BUPIVACAINE LIPOSOME 266 MG, BUPIVACAINE/EPINEPHRINE INJ 50 ML, SODIUM CHLORIDE 0.9% PF... INFIL SCH; -BURDOCK ROOT PO; -CEFAZOLIN 3000 MG/65 ML D5W 65 ML IV SCH; -EpHEDrine SULFATE INJ 50 MG/ML AMP IV PRN; -FENTANYL CITRATE INJ 50 MCG/1 ML 2 ML VIAL IV PRN; -LACTATED RINGER'S 1000ML IV SCH; -LACTATED RINGER'S 500 ML IV SCH; -LISI20TA3 PO; +LR 500ML BOLUS, THEN 15ML/HR IV SCH; +LR 60ML/HR IV SCH; -METOCLOPRAMIDE HCL 10 MG TAB PO SCH; +METOCLOPRAMIDE HCL 10 MG TABLET PO SCH; -MISCCAP55 PO; -MISCTAB27 PO; -MULT-506 PO; -ONDANSETRON INJ 2 MG/ML 2 ML VIAL IV PRN; -SCOPOLAMINE 1.5 MG TDSY TD SCH; +TRANEXAMIC ACID 1,000 MG **IV Pre-op IV SCH; -TRANEXAMIC ACID INJ 1,000 MG in SODIUM CHLORIDE 0.9% 100ML 100 ML IV SCH
[2019-06-09] MEDS ORDERED: BUPIVACAINE 0.5 % 5 MG/1 ML PF 10ML VIAL ONE (06:46)
--- NOTE | 2019-06-09 06:52 | History & Physical Bridge Note ---
Date of Service June 09, 2019 History & Physical Bridge Note I have examined the patient, reviewed the History & Physical and in the interval since the performance of the History & Physical I have noted the following changes of clinical significance: no changes noted
[2019-06-09] MEDS ORDERED: LIDOCAINE HCL 2% 2 ML VIAL/AMP(20MG/ML) INFIL ONE (07:32)
[2019-06-09] MEDS ORDERED: MIDAZOLAM HCL 1 MG/ML 2ML VIAL ONE (07:32)
[2019-06-09] MEDS ORDERED: PROPOFOL IV EMULSION 10 MG/ML 20 ML VIAL IV ONE (07:32)
[2019-06-09] MEDS ORDERED: fentaNYL citrate 100 MCG/2 ML VIAL ONE (07:33)
[2019-06-09] MEDS ORDERED: ONDANSETRON INJ 2 MG/ML 2 ML VIAL ONE (07:33)
[2019-06-09] MEDS ORDERED: ATROPINE SULFATE 0.1 MG/ML 10ML SYR IV PRN (08:14)
[2019-06-09] MEDS ORDERED: PHENYLEPHRINE 100MCG/ML 5ML SYR IV PRN (08:14)
[2019-06-09] MEDS ORDERED: HYDROmorphone INJ 1 MG/ML SYRINGE IV PRN (08:14)
[2019-06-09] MEDS ORDERED: LABETALOL HCL IV 5 MG/ML 20ML IV PRN (08:14)
[2019-06-09] MEDS ORDERED: MEPERIDINE HCL 25 MG/ML CARP/VIAL IV PRN (08:14)
[2019-06-09] MEDS ORDERED: ONDANSETRON INJ 2 MG/ML 2 ML VIAL IV PRN ×2 (08:14→11:38)
[2019-06-09] MEDS ORDERED: ePHEDrine sulfate 50 MG/ML AMP IV PRN (08:14)
[2019-06-09] MEDS ORDERED: fentaNYL citrate 100 MCG/2 ML VIAL IV PRN (08:14)
[2019-06-09] MEDS ORDERED: BACITRACIN INJ 50,000 UNIT VIAL ONE (08:46)
[2019-06-09] MEDS ORDERED: BUPIVACAINE/EPINEPHRINE 0.5% MPF 1:200,000 10 ML VIAL ONE (08:46)
[2019-06-09] MEDS ORDERED: CEFAZOLIN 3000MG/72.5 ML BAG IV ONE (08:58)
[2019-06-09] MEDS ORDERED: CEFAZOLIN 3000MG 72.5 ML IV ONE (09:00)
[2019-06-09] MEDS ORDERED: ePHEDrine sulfate 50 MG/ML SYR ONE (10:07)
--- NOTE | 2019-06-09 10:40 | Post Operative Brief Note ---
PG Immediate Post Op with CF Date of Surgery June 09, 2019 Pre & Post Diagnosis Operation Date: 06/09/19 08:50 Pre-Op Diagnosis: Left Hip Degenerative Joint Disease Post-Op Diagnosis: Left Hip Degenerative Joint Disease I identified the patient and participated in the time-out.: Yes Procedure Operation Date: 06/09/19 08:50 Actual Procedures p Left Total Hip Arthroplasty--Uncemented(Left) - Darrion Richter MD Surgeon Darrion Richter MD Roller Bearing Inspector Jose, BRITTANI Estimated Blood Loss 200 Findings Consistent with Post-Op Diagnosis Fluids 1200 cc Specimens Specimen Description: Permanent specimen: A. Left femoral head Drains Guzman Catheter (A 16 Armenian guzman catheter was inserted by JASMIN Girard, without difficulty, clear yellow urine obtained, output to be monitored by Anesthesia.) Anesthesia Type Spinal MAC Complications none Disposition Accompanied Patient To Recovery: Yes Disposition: Recovery Room
--- NOTE | 2019-06-09 11:00 | Operative Report ---
Post Operative Report Pre & Post Diagnosis Operation Date: 06/09/19 08:50 Pre-Op Diagnosis: Left Hip Degenerative Joint Disease Post-Op Diagnosis: Left Hip Degenerative Joint Disease I identified the patient and participated in the time-out.: Yes Procedure Operation Date: 06/09/19 08:50 Actual Procedures p Left Total Hip Arthroplasty--Uncemented(Left) - Darrion Richter MD Surgeon Darrion Richter MD Art Professor Jose, PAC Estimated Blood Loss 200 Findings Consistent with Post-Op Diagnosis Operative findings revealed advanced left hip DJD. He had grade 4 [id number] disease of the femoral head with a collapse of the femoral head and grade 4 change of the acetabulum. He had a moderate to large hip joint effusion. Not a lot of a lot of osteophyte formation. Fluids 1200 cc. Specimens Left femoral head sent for pathology. Drains None. Anesthesia Type Spinal MAC Complications none Disposition Accompanied Patient To Recovery: Yes Disposition: Recovery Room Indications Patient is a 73-year-old gentleman is had about a year history of increasing left hip pain discomfort is gradually gotten worse over time. X-rays show progressive hip arthritis over the past year he had an MRI which showed a subchondral collapse of the femoral head. Patient failed all conservative care. He was requiring a cane to get around. He elected proceed with surgical treatment. Description of Procedure Operative implants consist of: 1. Biomet G7 size 56 mm acetabular shell. 2. 6.5 cancellus acetabular screws 135 mm length and 1 of 30 mm length. 3. Thornton hole eliminator. 4. Highly cross-linked polyethylene liner with a 56 mm outer diameter, 36 mm inner diameter with a back placed inferior and posterior. 5. Meg Corail size 11 KLA femoral stem. 6. +8.5/36 mm ceramic articular ball. Patient was taken to the operating room identified and placed on the operating table supine position protectors were properly padded. IV antibiotics arrived by anesthesia team. A spinal anesthetic had been implemented in the holding area. Woods catheter was placed in sterile fashion. Patient then placed in the right lateral decubitus position. Axillary roll was placed. The Stulberg hip positioner was used for positioning. The left hip and leg were then prepped and draped in usual sterile fashion. A posterior lateral approach to the left hip was then performed through a curvilinear incision centered over the greater trochanter. Sharp dissection was cut through subcutaneous tissue down to the IT band gluteal fascia the IT band gluteal fascia were incised longitudinally in line with skin incision. The underlying greater truck bursa was excised. The piriformis and external rotators were tagged and taken off the posterior aspect of the hip joint capsule. Great care was taken throughout the procedure to protect sciatic nerve at all times. Posterior capsulotomy was then performed leaving a large flap for later repair. Hip was internally rotated and dislocated. Femoral neck osteotomy cut was made with Final Cut about 10 mm above the lesser trochanter. Femoral head was removed and sent for pathology. The femur was retracted anteriorly. Attention drawn the acetabulum. The acetabulum labrum was excised. The pulmonary fat was excised. Sequential reaming the acetabular was then performed begin with size 47 and progressing up to a 55. A 56 mm Biomet G7 acetabular shell was then placed in about 40 degrees lateral opening and 20 degrees of anteversion. It was fixed with two 6.5 cancellus acetabular screws. A trial liner was placed. Attention drawn the femur. The proximal femur was entered with a cookie-cutter followed by canal finder and broaching was begun at a size 8. I broached up to 11 got excellent fit and 11. We used a calcar reamer to smooth off the calcar. Then trialed the hip. The soft tissue tension was fairly lax and he had quite a bit of offset so we did a use the 8.5 articular ball. Hip was fully stable in full extension and external rotation and flexion to 9 degrees into rotation to over 50 degrees. I do the soft tissue laxity I did place a back inferior and posterior to maximize the stability in flexion. That we elect to place these implants. All trial implants were removed. An apex hole eliminator was placed but highly cross-linked polyethylene liner with a back placed inferior and posterior was impacted in position. A Meg size 11 KLA femoral stem was impacted in position. Hip was located once again found to be stable. Attention drawn toward closing. Nupathe the wound was irrigated copious pulsatile lavage solution. I did inject locally with 60 cc of half percent Marcaine with epinephrine. The posterior capsule and external rotators were then repaired through drill holes in the posterior trochanter with #2 Tycron suture. The IT band gluteal fascia then closed in 1 PDS suture running fashion with subcutaneous tissue then closed with 2 layers the deep layer #1 Vicryl suture and subcutaneous tissues with 2-0 Dexon suture in a buried interrupted fashion. Skin was closed skin ray. Leg was then cleaned dried a sterile dressing composed of Xeroform, 4 x 4's, sterile ABD pad and foam tape was applied. Patient then transferred to the recovery room in stable condition. Patient tolerated the procedure well no complications. I attest to the content of the Intraoperative Record and any orders documented therein. Any exceptions are noted below.
--- NOTE | 2019-06-09 11:17 | XRay Report ---
AP PELVIS, CROSSTABLE LATERAL LEFT HIP History: Left total hip arthroplasty. Degenerative arthritis. Postop. FINDINGS: The patient is status post a left total hip arthroplasty. The hardware is intact. No fractu re or dislocation. Skin ray are in place. IMPRESSION: Left total hip arthroplasty. No evidence for hardware complication. ACT 112: Negative or not required by law. Electronically signed by: Hiren Maynard M.D. 06/09/2019 11:15 AM
--- NOTE | 2019-06-09 11:19 | Anesthesiology Progress Note ---
Date of Service June 09, 2019 Anesthesia Post Procedure Vital Signs Vital Signs: Temp Pulse Pulse Resp BP BP Pulse Ox 06/09/19 11:05 65 16 101/59 L 96 06/09/19 10:55 72 16 125/61 97 06/09/19 10:45 68 16 128/60 100 06/09/19 10:39 36.8 C 72 16 114/52 L 99 06/09/19 06:40 36.5 C 66 18 181/96 H 99 Transfer of Care Handoff Completed per policy Notes Mental Status: alert / awake / arousable Patient Amnestic to Procedure: Yes Nausea / Vomiting: adequately controlled Pain: adequately controlled Airway Patency, RR, SpO2: stable & adequate BP & HR: stable & adequate Hydration State: stable & adequate Neuraxial Anesthesia: was administered and sensory block is resolving Anesthetic Complications: no major complications apparent and Pt Satisfied with anesthetic care
[2019-06-09] MEDS ORDERED: TRAMADOL HCL 50 MG TABLET PO PRN (11:38)
[2019-06-09] MEDS ORDERED: MAGNESIUM HYDROXIDE SUSP 30 ML UDC PO PRN (11:38)
[2019-06-09] MEDS ORDERED: ALUMINUM/MAGNESIUM SUSP 30 ML UDC PO PRN (11:38)
[2019-06-09] MEDS ORDERED: METOCLOPRAMIDE HCL INJ 5 MG/ML 2 ML VIAL IV PRN (11:38)
[2019-06-09] MEDS ORDERED: TAMSULOSIN HCL 0.4 MG CAP PO PRN (11:38)
[2019-06-09] MEDS ORDERED: HYDROmorphone INJ 0.5 MG/0.5 ML SYR IV PRN (11:38)
[2019-06-09] MEDS ORDERED: NALOXONE HCL 0.4 MG/1 ML VIAL/CARP IV PRN (11:38)
[2019-06-09] MEDS ORDERED: bisacodyL 10 MG SUPP PR PRN (11:38)
[2019-06-09] MEDS ORDERED: PNEUMOCOCCAL POLYSACCHARIDES 25 MCG/0.5 ML VIAL/SYR IM ONE (11:54)
[2019-06-09] MEDS ORDERED: PNEUMOCOCCAL ADMINISTRATION CHARGE ONE (11:54)
[2019-06-09] MEDS: KETOROLAC TROMETHAMINE 15 MG/ML VIAL IV SCH ×2 (13:19→18:18)
[2019-06-09] MEDS: ACETAMINOPHEN 500 MG TAB PO SCH ×2 (13:20→21:12)
[2019-06-09] MEDS: SODIUM CHLORIDE 0.9% 1000ML 1,000 ML IV SCH ×2 (13:23→20:11)
[2019-06-09] MEDS: CEFAZOLIN 2000MG 2,000 MG/15 ML SYR IV SCH (16:44)
[2019-06-09] MEDS ORDERED: TRANEXAMIC ACID / 0.7% NACL 1,000 MG/100 ML BAG IV SCH (17:00)
[2019-06-09] MEDS: ASCORBIC ACID 500 MG TAB PO SCH (18:16)
[2019-06-09] MEDS: FERROUS GLUCONATE 324 MG TAB PO SCH (18:17)
[2019-06-09] MEDS ORDERED: SENNA 8.6 MG TAB PO SCH (21:00)
[2019-06-09] MEDS: ASPIRIN 81 MG ECTAB PO SCH (21:10)
[2019-06-09] MEDS: lisinopriL 20 MG TAB PO SCH (21:11)
[2019-06-09] MEDS: DOCUSATE SODIUM 100 MG CAP PO SCH (21:13)
[2019-06-10] MEDS: KETOROLAC TROMETHAMINE 15 MG/ML VIAL IV SCH ×2 (00:44→05:38)
[2019-06-10] MEDS: CEFAZOLIN 2000MG 2,000 MG/15 ML SYR IV SCH (00:44)
[2019-06-10] MEDS: ACETAMINOPHEN 500 MG TAB PO SCH ×2 (05:38→13:16)
[2019-06-10 05:49] LABS: Basophils # (auto) 0.04 K/uL (0-0.2); Basophils % (auto) 0.3 %; Eosinophils # (auto) 0.23 K/uL (0-0.5); Eosinophils % (auto) 1.9 %; Hematocrit (blood only) 36.3 % (42-52); Hemoglobin 11.5 g/dL (14.0-18.0); Immature Granulocytes # (auto) 0.02 K/uL (0.00-0.02); Immature Granulocytes % (auto) 0.2 %; Lymphocytes # (auto) 1.44 K/uL (1.2-3.4); Lymphocytes % (auto) 12.1 %; Mean Corpuscular Hgb Conc 31.7 g/dL (32-36); Mean Corpuscular Volume 91.7 fL (80-100); Mean Platelet Volume 10.8 fL (7.4-10.4); Monocytes # (auto) 1.52 K/uL (0.11-0.59); Monocytes % (auto) 12.7 %; Neutrophils % (auto) 72.8 %; Platelet Count 275 K/uL (130-400); RDW Coefficient of Variation 15.4 % (11.5-14.5); RDW Standard Deviation 51.7 fL (36.4-46.3); Red Blood Count 3.96 M/uL (4.7-6.1); White Blood Count 11.95 K/uL (4.8-10.8)
[2019-06-10 06:24] LABS: BUN Creatinine Ratio 18.7 (10-20); Calcium 8.1 mg/dl (8.5-10.1); Est GFR (African American) 53.7; Est GFR (Non-African American) 46.3; Potassium 4.4 mmol/L (3.5-5.1)
[2019-06-10] MEDS ORDERED: ARMOUR THYROID 30 MG TAB PO SCH (06:30)
[2019-06-10] MEDS: ASCORBIC ACID 500 MG TAB PO SCH (08:59)
[2019-06-10] MEDS: ASPIRIN 81 MG ECTAB PO SCH (08:59)
[2019-06-10] MEDS: DOCUSATE SODIUM 100 MG CAP PO SCH (08:59)
[2019-06-10] MEDS ORDERED: MULTIVITAMIN TAB PO SCH (09:00)
[2019-06-10] MEDS ORDERED: AMLODIPINE BESYLATE 5 MG TAB PO SCH (09:00)
[2019-06-10] MEDS ORDERED: SUPER BETA PROSTATE PO SCH (09:00)
[2019-06-10 10:04] VITALS: BP 140/76
--- NOTE | 2019-06-10 10:28 | Progress Notes ---
DATE: 06/10/2019 SUBJECTIVE: A 73-year-old gentleman postop day 1 from a left total hip replacement. He is doing well. He has been getting around well. Pain is very well controlled. Had a pretty good night. No chest pain or shortness of breath. Not feeling dizzy or lightheaded. OBJECTIVE: VITAL SIGNS: Temperature 36.7. Vital signs stable. GENERAL: Shows a pleasant, middle-aged male. He is sitting up in his bedside chair, looks completely comfortable. LUNGS: Clear to auscultation. HEART: Has regular rate and rhythm. ABDOMEN: Soft, nontender, nondistended. EXTREMITIES: Grossly neurovascularly intact except as follows. Examination of the left leg reveals his dressing to be clean, dry and intact. Leg lengths are equal. Minimal swelling. He is neurologically intact. He can dorsiflex and plantarflex his foot appropriately. LABORATORY DATA: Hemoglobin is 11.5. Hematocrit 36.3. Electrolytes are stable. Creatinine just slightly elevated. ASSESSMENT: A 73-year-old gentleman postop day 1 from a left hip replacement, doing pretty well. Pain is controlled. Hip is located. He is neurologically intact. Creatinine just slightly elevated. He is open to go home. PLAN: 1. DVT prophylaxis including thigh-high TEDs, SCDs, and aspirin twice a day. 2. PT/OT. Weight bear as tolerated. Left total hip protocol. 3. Pain control, doing well with current pain regimen. We are going to stop his Toradol due to his slightly elevated creatinine. 4. Disposition, we will see how therapy goes today. He is open to go home and we will see how he does in therapy.
[2019-06-10] MEDS: lisinopriL 20 MG TAB PO SCH (11:21)
[2019-06-10 11:31] VITALS: PULSE 68; TEMP 97.7; O2SAT 97
--- NOTE | 2019-06-12 12:02 | Discharge Summary (DS) ---
ADMITTING PHYSICIAN AND SURGEON: Dr. Richter. ADMITTING DIAGNOSIS: Left hip degenerative joint disease. SURGERY PERFORMED: Left total hip arthroplasty. SECONDARY DIAGNOSES: Hypertension, obesity, hypothyroidism, benign prostatic hypertrophy, low back pain, sciatica. CONSULTS: None obtained. HISTORY AND PHYSICAL EXAMINATION: Well-documented in the patient's chart. HOSPITAL COURSE: The patient was admitted on 06/09/2019, underwent total hip arthroplasty, tolerated the procedure well. There were no complications. He was transferred to the PACU postoperatively and later to the orthopedic floor for further care. He was given Ancef for antibiotic prophylaxis, DG stockings, SCDs and aspirin for DVT prophylaxis. Hemoglobin, hematocrit and vital signs were monitored during his hospital stay and remained stable, did not require any blood transfusions. There were no complications. By postoperative day 1, he was tolerating a regular diet, pain was controlled with oral pain medicine. He was participating in physical therapy. On postop day 1, he was discharged home, set up with home health services. He was given printed discharge instructions as well as new prescriptions for extra strength Tylenol, aspirin and tramadol. Continue his home medicines with the exception of his home dosing of Tylenol and aspirin, which were changed. Continue physical therapy, weightbearing as tolerated, DG stockings, total hip precautions. Follow up approximately 2 weeks postop or sooner if there are any problems or concerns.
== END 2019-06-10 13:26 | disposition home health service (06) ==
LOC: ASU 06:07 → 3E 06:07

== ENCOUNTER 2020-10-04 05:14 | Observation (INO) ==
--- NOTE | 2020-09-26 13:46 | Anesthesiology Consultation ---
Date of Service September 26, 2020 Assessment & Plan (1) Encounter for pre-operative examination: Chart Review Chart Review: Acceptable Risk for Surgery and Patient NOT seen in Pre Admission Testing Consults Requested none History Surgery Operation Date: 10/04/20 12:45 Proposed Procedures p Right Total Hip Arthroplasty - Darrion Richter MD Height/Weight Height: 5 ft 9 in Weight: 86.183 kg Allergies Allergy/AdvReac Type Severity Reaction Status Date / Time adhesive Allergy Intermediate Rash WITH Verified 09/26/20 10:19 SOME TAPE Medications Home Medications Medication Instructions Recorded Confirmed Last Taken Super Beta Prostate 2 tab PO QAM 05/15/19 09/26/20 05/26/19 amlodipine 10 mg PO QAM 05/15/19 09/26/20 06/09/19 05:30 lisinopril 20 mg PO BID 05/15/19 09/26/20 06/08/19 17:00 thyroid (pork) [[place] Thyroid] 60 mg PO QAM 05/15/19 09/26/20 06/09/19 05:30 3-in-1 Commode #1 ea 05/31/19 11/28/19 Unknown Wheeled Walker #1 ea 05/31/19 11/28/19 Unknown amoxicillin 500 mg tablet 2,000 mg PO ONCE #4 tab 03/05/20 09/26/20 Unknown Vitamin C 2 tab PO QAM 09/26/20 09/26/20 Unknown Zinc 30 mg PO QAM 09/26/20 09/26/20 Unknown acetaminophen [Tylenol Extra 1,000 mg PO BID 09/26/20 09/26/20 Unknown Strength] aspirin [Aspir-81] 81 mg PO QAM 09/26/20 09/26/20 Unknown cholecalciferol (vitamin D3) 100 mcg PO QAM 09/26/20 09/26/20 Unknown [Vitamin D3] cyanocobalamin (vitamin B-12) 1,000 mcg PO QAM 09/26/20 09/26/20 Unknown ibuprofen 200 mg PO Q6H PRN 09/26/20 09/26/20 Unknown Past Medical History Medical History History of back problems Hypertension Hypertrophy of prostate Hypothyroid Morbid obesity Osteoarthritis Osteoarthritis of right hip Right knee DJD Past Family History Family History Brother Prostate cancer Diabetes Sister Diabetes Other Cancer Heart disease Hypertension Past Surgical History Surgical History H/O hernia repair History of colonoscopy History of left hip replacement History of neck surgery BENIGN MASS REMOVAL History of total right knee replacement Social History Smoking Status: Never smoker Do You Dip or Chew Tobacco: No (QUIT 30 YRS AGO) Hx Alcohol Use: Yes Alcohol type: wine alcohol intake frequency: 0-2 drinks per day Hx Substance Use: No substance use type: does not use Lab Results Anesthesia Preop Results Results Anesthesia Widget: WBC 11.99 K/uL (4.8-10.8) H 09/23/20 Hgb 13.2 g/dL (14.0-18.0) L 09/23/20 Hct 42.0 % (42-52) 09/23/20 Plt 407 K/uL (130-400) H 09/23/20 Na 141 mmol/L (136-145) 09/25/20 K 4.4 mmol/L (3.5-5.1) 09/25/20 Cl 110 mmol/L (98-107) H 09/25/20 CO2 25 mmol/L (21-32) 09/25/20 BUN 30 mg/dl (7-18) H 09/25/20 Creat 1.23 mg/dl (0.6-1.4) 09/25/20 Glucose Level 115 mg/dl (70-99) H 09/25/20 PT 9.8 Seconds (9.0-12.0) 09/23/20 INR 1.0 (0.9-1.1) 09/23/20 Blood Type AB Positive 09/23/20 Antibody Screen NEGATIVE 09/23/20 Testing Electrocardiogram Date: 09/23/20 Normal sinus rhythm, rate 67 bpm Incomplete right bundle branch block Borderline ECG When compared with ECG of 19-MAY-2019 10:45, No significant change was found Confirmed by Kye Hardin ([id number]) on 09/24/2020 6:02:51 AM Chest X-Ray Date: 09/23/20 Findings: + NAD
[2020-10-04] MEDS ORDERED: LR 60ML/HR IV SCH (06:00)
[2020-10-04] MEDS ORDERED: LR 500ML BOLUS IV SCH (06:00)
[2020-10-04] MEDS ORDERED: GABAPENTIN 300 MG CAP PO SCH (06:00)
[2020-10-04] MEDS ORDERED: ACETAMINOPHEN 500 MG TAB PO SCH (06:00)
[2020-10-04] MEDS ORDERED: ceFAZolin 2000MG 2,000 MG/15 ML SYR IV SCH (06:00)
[2020-10-04] MEDS ORDERED: TRANEXAMIC ACID 1,000 MG **IV Pre-op IV SCH (06:00)
[2020-10-04] MEDS ORDERED: Scopolamine 1 MG TDSY TD SCH (06:00)
[2020-10-04] MEDS ORDERED: METOCLOPRAMIDE HCL 10 MG TABLET PO SCH (06:00)
[2020-10-04] MEDS ORDERED: FAMOTIDINE 20 MG TAB PO SCH (06:00)
[2020-10-04] MEDS ORDERED: BUPIVACAINE 0.5 % 5 MG/1 ML PF 10ML VIAL ONE (06:23)
[2020-10-04] MEDS ORDERED: PROPOFOL IV EMULSION 10 MG/ML 20 ML VIAL IV ONE (06:36)
[2020-10-04] MEDS ORDERED: MIDAZOLAM HCL 1 MG/ML 2ML VIAL ONE (06:36)
[2020-10-04] MEDS ORDERED: fentaNYL citrate 100 MCG/2 ML VIAL ONE (06:36)
[2020-10-04] MEDS ORDERED: LIDOCAINE 2% 2 ML VIAL/AMP(20MG/ML) INFIL ONE (06:36)
[2020-10-04] MEDS ORDERED: BUPIVACAINE/EPINEPHRINE 0.5% MPF 1:200,000 30 ML VIAL ONE (06:38)
[2020-10-04] MEDS ORDERED: MoRPHine SULFATE PF 1 MG/ML 10 ML AMP/VIAL ONE (06:43)
--- NOTE | 2020-10-04 06:54 | History & Physical Bridge Note ---
Date of Service October 04, 2020 History & Physical Bridge Note I have examined the patient, reviewed the History & Physical and in the interval since the performance of the History & Physical I have noted the following changes of clinical significance: no changes noted
[2020-10-04 07:02] LABS: Partial Thromboplastin Time 27.2 Seconds (21.0-31.0)
--- NOTE | 2020-10-04 08:58 | Operative Report ---
Post Operative Report Pre & Post Diagnosis Operation Date: 10/04/20 07:00 Pre-Op Diagnosis: Right Hip Degenerative Joint Disease, Chronic Hip Abductor Tear Post-Op Diagnosis: Right Hip Degenerative Joint Disease, Chronic Hip Abductor Tear I identified the patient and participated in the time-out.: Yes Procedure Operation Date: 10/04/20 07:00 Actual Procedures p Right Total Hip Arthroplasty, Right Hip Abductor Repair (Right) - Darrion Richter MD Surgeon Darrion Richter MD Truck Driver Instructor KLAUS Garcia Estimated Blood Loss 200 Findings Consistent with Post-Op Diagnosis Operative findings were advanced right hip DJD. He did have grade 4 [id number] disease the superior aspect of the femoral head and acetabulum. Moderate-sized joint effusion. Not a lot of osteophyte formation. Fluids 1000 cc Specimens Right femoral head sent for pathology. Drains None Anesthesia Type Spinal MAC Complications none Disposition Accompanied Patient To Recovery: Yes Indications Patient is a 75-year-old gentleman who is now about a little over a year out from a left hip replacement. Over the past 6 months he is developed increased pain discomfort in his right hip. He had to resort to using a cane to get around. The x-ray showed progressive right hip arthritis and elected proceed with total hip arthroplasty. Description of Procedure Operative implants consist of: 1 Biomet G7 size 54 Ring acetabular shell. 2. 6.5 cancellous acetabular screws 135 mm length 1 of 30 mm length. 3. Braidwood hole painter apprentice. 4. Highly cross-linked polyethylene liner with a 54 mm outer diameter and 36 mm inner diameter. 5. DePuy Corail size 11 KLA femoral stem. 6. +5/36 mm ceramic articular ball. The patient was taken to the operating, identified, and placed on the operating table supine position but all contractors were properly padded. IV antibiotics tried by anesthesia team. A spinal anesthetic and been implemented holding area. Woods catheter was placed in sterile fashion. The patient then placed in the left lateral decubitus position and axillary roll was placed. A Stulberg hip positioner was used for positioning. The right hip and leg were then prepped and draped in usual sterile fashion. A posterior lateral approach to the right hip was then performed to a curvilinear incision centered over the greater trochanter. Sharp dissection got through subcutaneous tissue down to the IT band gluteal fascia the IT band gluteal fascia incised longitudinally in line with skin incision. The underlying greater bursa was excised. The piriformis and external rotators were tagged and taken off the posterior aspect hip joint capsule. Great care was taken throughout the procedure to protect the sciatic nerve at all times. Posterior capsulotomy was then performed leaving a large flap for later repair. The hip was internally rotated and dislocated. A femoral neck osteotomy cut was made with Final Cut about 12 mm above the lesser trochanter. Femoral head was removed and sent for pathology. The femur was retracted anteriorly. Attention drawn the acetabulum. The acetabular labrum was excised. The pulmonary fat was excised. Sequential reaming the acetabular was then performed given the size of 45 and progressing up to 53. I then reamed a little bit with a 54 reamer and placed a 54 mm Biomet G7 acetabular shell in about 40 degrees lateral opening and 20 degrees of anteversion. It was fixed with two 6.5 cancellous acetabular screws. A trial liner was placed. Attention drawn the femur. The proximal femur was entered with a cookie-cutter followed by canal finder. I then broached begin the size 8 and progressing up to 11. Got excellent fit at 11. I could not quite get the 11 broach down and we elected to stop there. I then trialed the hip and the +5 articular ball provide full stability full extension and external rotation flexion to 9 degrees internal rotation over 50 degrees. Leg lengths seemed appropriate soft tissue tension seemed appropriate. I elect to place these implants. All trial implants were removed. An apex hole painter apprentice was placed. A highly cross-linked polyethylene liner was impacted in position. A DePuy size 11 KLA femoral stem was impacted in position. We left this just a millimeter to problem. A +5/36 mm ceramic articular ball was placed. Hip was located once again found to be stable. Attention drawn toward closing. The wounds irrigated copious also pulsatile lavage solution. I did inject locally with 60 cc of half percent Marcaine with epinephrine. The posterior capsule and external rotators were then repaired through drill holes in the trochanter with #2 Tycron suture. The IT band gluteal fascia then closed in 1 PDS suture in running fashion for subcutaneous tissue was closed with 2 layers the deep layer #2 Vicryl suture in the subcutaneous tissue with 2 Dexon suture in a buried interrupted fashion the skin was closed skin ray. Leg was then cleaned dried a sterile dressing was Xeroform, 4 x 4's, ABD pad, foam tape was applied. Patient then transferred to the recovery room in stable condition. Patient tolerated procedure well and there were no complications. Harjinder Garcia, my physician workforce development assistant, was present for the entire procedure. His assistance was essential and required for appropriate patient positioning, p repping and draping, surgical exposure, performing the technical details of the operation, placement the implants, closure of the wound, and placement of the sterile bandage. I attest to the content of the Intraoperative Record and any orders documented therein. Any exceptions are noted below.
--- NOTE | 2020-10-04 10:04 | XRay Report ---
AP PELVIS, CROSSTABLE LATERAL RIGHT HIP History: Right total hip arthroplasty. Degenerative arthritis. Postop. FINDINGS: The patient is status post a right total hip arthroplasty. The hardware is intact. No fract ure or dislocation. Skin ray are in place. Prior left total arthroplasty is noted. IMPRESSION: Right total hip arthroplasty. No evidence for hardware complication ACT 112: Negative or not required by law. Electronically signed by: Hiren Maynard M.D. 10/04/2020 10:02 AM
[2020-10-04] MEDS ORDERED: SUPER BETA PROSTATE PO SCH (10:24)
[2020-10-04] MEDS ORDERED: TAMSULOSIN HCL 0.4 MG CAP PO PRN (10:24)
[2020-10-04] MEDS ORDERED: traMADol HCL 50 MG TABLET PO PRN (10:24)
[2020-10-04] MEDS ORDERED: VITAMIN C PO SCH (10:24)
[2020-10-04] MEDS ORDERED: bisacodyL 10 MG SUPP PR PRN (10:24)
[2020-10-04] MEDS ORDERED: ONDANSETRON INJ 2 MG/ML 2 ML VIAL IV PRN ×2 (10:24→10:47)
[2020-10-04] MEDS ORDERED: METOCLOPRAMIDE HCL INJ 5 MG/ML 2 ML VIAL IV PRN (10:24)
[2020-10-04] MEDS ORDERED: ONDANSETRON INJ 2 MG/ML 2 ML VIAL ONE (10:24)
[2020-10-04] MEDS ORDERED: ALUMINUM/MAGNESIUM SUSP 30 ML UDC PO PRN (10:24)
[2020-10-04] MEDS ORDERED: NON-FORMULARY MEDICATION (Zinc 30 MG) PO SCH (10:24)
[2020-10-04] MEDS ORDERED: HYDROmorphone INJ 0.5 MG/0.5 ML SYR IV PRN ×2 (10:24→10:47)
[2020-10-04] MEDS ORDERED: NALOXONE HCL 0.4 MG/1 ML VIAL/CARP IV PRN ×2 (10:24→10:47)
[2020-10-04] MEDS ORDERED: MAGNESIUM HYDROXIDE SUSP 30 ML UDC PO PRN (10:24)
--- NOTE | 2020-10-04 10:43 | Anesthesiology Progress Note ---
Date of Service October 04, 2020 Anesthesia Post Procedure Vital Signs Vital Signs: Temp Pulse Pulse Resp BP BP Pulse Ox 10/04/20 10:30 70 20 176/79 H 96 10/04/20 09:40 61 14 153/78 H 98 10/04/20 09:25 36.2 C L 64 21 130/60 99 10/04/20 09:15 65 20 133/75 95 10/04/20 09:05 65 12 145/70 H 94 10/04/20 08:55 60 20 125/68 97 10/04/20 08:48 36.2 C L 62 12 109/54 L 97 10/04/20 06:25 60 20 174/79 H 99 10/04/20 05:47 36.9 C 67 20 182/83 H 97 Pain Intensity Right Hip: Pain Intensity: 4 Transfer of Care Handoff Completed per policy Notes Mental Status: alert / awake / arousable and participated in evaluation Patient Amnestic to Procedure: Yes Nausea / Vomiting: adequately controlled Pain: adequately controlled Airway Patency, RR, SpO2: stable & adequate BP & HR: stable & adequate Hydration State: stable & adequate Anesthetic Complications: no major complications apparent
[2020-10-04] MEDS ORDERED: ePHEDrine sulfate 50 MG/ML AMP IV PRN (10:47)
[2020-10-04] MEDS ORDERED: diphenhydrAMINE 50 MG/ML VIAL IV PRN (10:47)
[2020-10-04] MEDS ORDERED: MoRPHine SULFATE PF 1 MG/ML 10 ML AMP/VIAL INT SPINAL ONE (10:47)
[2020-10-04] MEDS ORDERED: KETOROLAC 30 MG/ML VIAL IV PRN (10:47)
[2020-10-04] MEDS ORDERED: NALOXONE HCL 0.08 MG in SYRINGE 1.8 ML IV PRN (10:47)
[2020-10-04] MEDS ORDERED: NALBUPHINE HCL INJ 10 MG/ML AMP IV PRN (10:47)
[2020-10-04] MEDS ORDERED: MoRPHine SULFATE 2 MG/ML CARP IV PRN (10:47)
[2020-10-04] MEDS ORDERED: LACTATED RINGER'S 500 ML IV PRN (10:47)
[2020-10-04] MEDS ORDERED: MEPERIDINE HCL 25 MG/ML CARP/VIAL IV PRN (10:47)
[2020-10-04] MEDS ORDERED: NALOXONE HCL 1 MG in SODIUM CHLORIDE 0.9% 1000ML 1,000 ML IV PRN (10:47)
[2020-10-04] MEDS ORDERED: SODIUM CHLORIDE 0.9% 1000ML 1,000 ML IV SCH (11:00)
[2020-10-04] MEDS ORDERED: DC INTRASPINAL MORPHINE SCH (11:00)
[2020-10-04] MEDS ORDERED: NO NARCOTICS OR SEDATIVES SCH (11:00)
[2020-10-04] MEDS: MULTIVITAMIN TAB PO SCH (11:43)
[2020-10-04] MEDS: SODIUM CHLORIDE 0.9% 1000ML 1,000 ML IV SCH ×2 (11:43→20:55)
[2020-10-04] MEDS: ASPIRIN 81 MG ECTAB PO SCH ×3 (11:44→20:58)
[2020-10-04] MEDS: CYANOCOBALAMIN 500 MCG TABLET (VITAMIN B-12) PO SCH (11:44)
[2020-10-04] MEDS: amLODIPine BESYLATE 5 MG TAB PO SCH ×2 (11:45→11:47)
[2020-10-04] MEDS: ARMOUR THYROID 30 MG TAB PO SCH ×2 (11:45→11:47)
[2020-10-04] MEDS: DOCUSATE SODIUM 100 MG CAP PO SCH ×2 (11:45→20:58)
[2020-10-04] MEDS: lisinopril 20 MG TAB PO SCH ×2 (11:45→20:57)
[2020-10-04] MEDS: ACETAMINOPHEN 500 MG TAB PO SCH ×2 (14:22→20:57)
[2020-10-04] MEDS: ceFAZolin 2000MG 2,000 MG/15 ML SYR IV SCH ×2 (14:22→20:55)
[2020-10-04] MEDS ORDERED: TRANEXAMIC ACID / 0.7% NACL 1,000 MG/100 ML BAG IV SCH (15:00)
[2020-10-04] MEDS: Scopolamine CHECK PATCH PLACEMENT SCH ×2 (17:15→23:10)
[2020-10-04] MEDS: ASCORBIC ACID 500 MG TAB PO SCH (18:23)
[2020-10-04] MEDS ORDERED: SENNA 8.6 MG TAB PO SCH (21:00)
[2020-10-05] MEDS: ACETAMINOPHEN 500 MG TAB PO SCH ×2 (05:14→14:07)
[2020-10-05] MEDS: KETOROLAC TROMETHAMINE 15 MG/ML VIAL IV SCH ×2 (05:14→12:32)
[2020-10-05 06:34] LABS: Basophils # (auto) 0.05 K/uL (0-0.2); Basophils % (auto) 0.4 %; Eosinophils # (auto) 0.31 K/uL (0-0.5); Eosinophils % (auto) 2.5 %; Hematocrit (blood only) 32.9 % (42-52); Hemoglobin 10.2 g/dL (14.0-18.0); Immature Granulocytes # (auto) 0.03 K/uL (0.00-0.02); Immature Granulocytes % (auto) 0.2 %; Lymphocytes # (auto) 1.12 K/uL (1.2-3.4); Lymphocytes % (auto) 9.1 %; Mean Corpuscular Hemoglobin 25.8 pg (25-34); Mean Corpuscular Volume 83.1 fL (80-100); Mean Platelet Volume 10.7 fL (7.4-10.4); Monocytes # (auto) 1.94 K/uL (0.11-0.59); Monocytes % (auto) 15.7 %; Neutrophils # (auto) 8.91 K/uL (1.4-6.5); Neutrophils % (auto) 72.1 %; Platelet Count 282 K/uL (130-400); RDW Coefficient of Variation 17.6 % (11.5-14.5); RDW Standard Deviation 54.1 fL (36.4-46.3); Red Blood Count 3.96 M/uL (4.7-6.1); White Blood Count 12.36 K/uL (4.8-10.8)
[2020-10-05 07:09] LABS: Calcium 8.1 mg/dl (8.5-10.1); Creatinine Clr Calc Pharmacy 76.1 ml/min; Est GFR (African American) 72.8 ml/min; Est GFR (Non-African American) 62.8 ml/min; Potassium 3.8 mmol/L (3.5-5.1)
[2020-10-05] MEDS ORDERED: dexAMETHasone 10 MG in SYRINGE 0 ML IV ONE (08:00)
[2020-10-05] MEDS: Scopolamine CHECK PATCH PLACEMENT SCH (08:22)
[2020-10-05] MEDS: ASCORBIC ACID 500 MG TAB PO SCH (08:23)
[2020-10-05] MEDS: amLODIPine BESYLATE 5 MG TAB PO SCH (08:27)
[2020-10-05] MEDS: CYANOCOBALAMIN 500 MCG TABLET (VITAMIN B-12) PO SCH (08:27)
[2020-10-05] MEDS: ASPIRIN 81 MG ECTAB PO SCH (08:27)
[2020-10-05] MEDS: DOCUSATE SODIUM 100 MG CAP PO SCH (08:27)
[2020-10-05] MEDS: ARMOUR THYROID 30 MG TAB PO SCH (08:28)
[2020-10-05] MEDS: lisinopril 20 MG TAB PO SCH (08:28)
[2020-10-05] MEDS: MULTIVITAMIN TAB PO SCH (08:28)
[2020-10-05] MEDS ORDERED: CHOLECALCIFEROL 1,000 UNITS 25 MCG TAB PO SCH (09:00)
--- NOTE | 2020-10-05 09:29 | Progress Notes ---
DATE OF SERVICE: 10/05/2020. SUBJECTIVE: This 75-year-old gentleman postop day 1 from a right hip replacement. He is doing prett y well. Really not much pain. No chest pain or shortness of breath. Not feeling dizzy or lighthead ed. OBJECTIVE: VITAL SIGNS: Temperature 36.6. Vital signs stable. PHYSICAL EXAMINATION: GENERAL: Shows a large middle-aged male. He is lying in bed, looks comfortable this morning. EXTREMITIES: Examination of the right hip and leg reveals his leg lengths to be equal. His dressing is clean, dry and intact. Thigh is soft and supple. He can dorsiflex and plantarflex his foot appr opriately. LABORATORY DATA: Hemoglobin 10.2. Hematocrit 32.9. White cell count 12.36. His electrolytes are s table. ASSESSMENT: A 75-year-old gentleman postop day 1 from right hip replacement, doing reasonably well. Pain is controlled. Hip is located. He is neurologically intact. PLAN: 1. DVT prophylaxis include thigh-high TEDs, SCDs, and aspirin twice a day. 2. PT, OT, weightbear as tolerated. Right total hip protocol. 3. Pain control, doing well with current pain regimen. Really not in much pain at this time. 4. Disposition: Plan to discharge to home with some home health likely later today. Job ID: [id number]
--- NOTE | 2020-10-22 06:31 | Discharge Summary ---
Date of Service October 22, 2020 Discharge Data Procedures Performed Operation Date: 10/04/20 07:00 Actual Procedures p Right Total Hip Arthroplasty, Right Hip Abductor Repair (Right) - Darrion Richter MD Hospital Course (1) History of right hip replacement: This is a 75 year old patient admitted on 10/04/20 and underwent total hip arthroplasty. He tolerated the procedure well and there were no complications. Transferred to the PACU post op and later to the orthopedic floor for further care. He was given ancef for antibiotic prophylaxis. He was also given DG stockings, SCDs, and aspirin for DVT prophylaxis. Hemoglobin, hematocrit, and vital signs were monitored during his hospital stay and remained stable. Did not require any blood transfusions. There were no complications during his hospital stay. By post op day #1 the patient was tolerating a regular diet, pain was reasonably controlled with oral pain medicine, and he was participating in physical therapy. On post op day #1 the patient was discharged home and set up with home health care. He was given printed discharge instructions including prescriptions for extra strength tylenol, aspirin, and tramadol. Continue physical therapy, weight bearing as tolerated. Continue hip precautions. Continue DG stockings. Follow up approximately 2 weeks post op or sooner if there are problems or concerns. Coding Level of Care Code None Diagnoses History of right hip replacement Z96.641
== END 2020-10-05 14:26 | disposition home health service (06) ==
LOC: 3N 05:14 → ASU 05:14
DX: I10 Essential (primary) hypertension; E66.01 Morbid (severe) obesity due to excess calories; S76.011A Strain of muscle, fascia and tendon of right hip, initial encounter; Z79.899 Other long term (current) drug therapy; X58.XXXA Exposure to other specified factors, initial encounter; M16.11 Unilateral primary osteoarthritis, right hip